=== PATIENT | male | born 2000 | race Caucasian/White ===

== ENCOUNTER 2021-01-29 07:55 | Day surgery (SDC) | payer BC ==
[~2021-01-29] VITALS: Ht 190.5 cm; Wt 86.5 kg
[2021-01-29] MEDS ORDERED: PROBIOTIC 2 BI1 EACH PO (08:29)
[2021-01-29] MEDS ORDERED: PRILOSEC 20MG20 MG PO (08:29)
[2021-01-29] MEDS ORDERED: PROBIOTIC FORMU1 CAP PO (08:29)
[2021-01-29 09:55] VITALS: BP 119/79; PULSE 83; TEMP 98
--- NOTE | 2021-01-29 09:55 | NUR ---
The patient arrived back to [facility] from the [facility] suite at this time. The patient ambulated from the cart to the recliner in his room and appeared to tolerate the activity well. Post procedure vital signs were started at this time. The patient appears drowsy but answers questions appropriately. Call light is within reach. Will continue to monitor the patient.
[2021-01-29 10:10] VITALS: BP 121/76; PULSE 81
--- NOTE | 2021-01-29 10:10 | NUR ---
The paitent appears more alert and agrees to try some apple juice and a muffin at this time. Post procedure vital signs appear stable. Call light remains within reach. Will continue to monitor the patient.
[2021-01-29 10:25] VITALS: BP 125/78; PULSE 90
--- NOTE | 2021-01-29 10:25 | NUR ---
The patient appeared to tolerate the muffin and juice well and requests to try some toast and more juice at this time. Vital signs appear stable. Call light remains within reach. The patient denies any further needs. Will continue to monitor the patient.
[2021-01-29 10:47] VITALS: BP 118/81; PULSE 79
--- NOTE | 2021-01-29 10:47 | NUR ---
Dr. Crockett is at the patient's bedside discussing the findings of the procedure with the patient and his father, via phone, at this time.
--- NOTE | 2021-01-29 10:55 | NUR ---
Discharge instructions were reviewed with the patient at this time. He verbalized understanding and has no questions for the nurse at this time. The patient's IV to his right hand was removed and a pressure dressing was applied to the site. The nurse instructed the patient to get dressed and notify the staff when he is ready to be escorted out.
--- NOTE | 2021-01-29 11:05 | NUR ---
The patient was escorted out via wheelchair to a private vehicle by BRICE Lazar. The patient's belongings and discharge paperwork were sent with him. The patient's father is present to drive him home.
[2021-01-29 12:12] VITALS: BP 122/82; PULSE 97; TEMP 98.9
== END 2021-01-29 11:05 | disposition home or self-care (01) ==
LOC: SDCO 07:55 → EDBD 09:00 → SDCO 09:00
DX: K21.9 Gastro-esophageal reflux disease without esophagitis (principal); K92.1 Melena; D13.39 Benign neoplasm of other parts of small intestine; R63.0 Anorexia; K64.0 First degree hemorrhoids; K59.00 Constipation, unspecified; F84.0 Autistic disorder; Z79.899 Other long term (current) drug therapy; Z80.42 Family history of malignant neoplasm of prostate; Z20.822 Contact with and (suspected) exposure to COVID-19
CPT/HCPCS: J2704; J7030